=== PATIENT | female | born 1950 | race Caucasian/White ===

== ENCOUNTER → 2017-01-08 | Outpatient (CLI) | payer BC ==
[~2017-01-08] MED LIST: CZR50 PO; FURO-85 PO; NAPR1TAB9 PO; OMEG120013 PO; SIMV10TA2 PO; TRIA0.1C20 TOP
--- NOTE | 2017-01-08 13:34 | MAMMOGRAPHY REPORT ---
BILATERAL DIGITAL SCREENING MAMMOGRAM TOMOSYNTHESIS WITH CAD: 01/08/2017 CLINICAL HISTORY: Routine screening. Patient has no complaints. TECHNIQUE: Breast tomosynthesis in addition to standard 2D mammography was performed. Current study was also evaluated with a Computer Aided Detection (CAD) system. COMPARISON: Comparison is made to exams dated: 01/05/2016 mammogram, 12/31/2014 mammogram, 12/25/2013 mammogram, 05/13/2013 ultrasound, 12/23/2012 mammogram, and 12/18/2011 mammogram - [facility]. BREAST COMPOSITION: There are scattered areas of fibroglandular density in both breasts. FINDINGS: There is a focal area of architectural distortion with central linear calcification in the 3:00 anterior left breast, for which additional targeted ultrasound and possible additional mammogra phic views are recommended. There are possible grouped microcalcifications in the middle one third o f the left breast along the posterior nipple line on the CC view for which additional spot magnificat ion views are recommended. Another possible area of architectural distortion in the anterior right b reast, 3.7 cm distal to the nipple along the posterior nipple line, for which additional spot renea maury tomosynthesis views and possible ultrasound are recommended, although this could represent sung l overlapping tissue. No other suspicious mass, area of architectural distortion or suspicious calcifications are identifie d bilaterally. There is a stable benign popcorn calcification in the approximate 2:00 posterior righ t breast. IMPRESSION: ACR BI-RADS CATEGORY 0: INCOMPLETE EVALUATION: NEED ADDITIONAL IMAGING EVALUATION The focal area of architectural distortion in the 3:00 anterior left breast, left breast microcalcifi cations and possible additional area of distortion in the anterior right breast need additional imagi ng evaluation. The patient will be called to schedule an appointment. Approximately 10% of breast cancers are not detected with mammography. A negative mammographic report should not delay biopsy if a clinically suggestive mass is present. Karol Romano M.D. ay/:01/08/2017 08:11:13 Audio Visual Secretary: Sylvia Tang, [facility] letter sent: Addl Imaging 0 BI-RADS Code: ACR BI-RADS Category 0: Incomplete Evaluation: Need Additional Imaging Evaluation
== END | disposition home or self-care (01) ==
LOC: C.MAMM 07:06
PROVIDERS: ATTEND Internal Medicine
DX: Z12.31 Encounter for screening mammogram for malignant neoplasm of breast (principal); R92.8 Other abnormal and inconclusive findings on diagnostic imaging of breast

== ENCOUNTER → 2017-02-07 | Outpatient (CLI) | payer BC ==
--- NOTE | 2017-02-07 09:50 | Discharge Instructions ---
Discharge Instructions Procedure Procedure Date: Feb 07, 2017. Reason for visit: Left Distortion/Left Calcs. Discharge Discharge Date: Feb 07, 2017. Discharge Diagnosis: post left breast stereotactic guided biopsy x 2 Medications Restart Stopped Medication(s): May restart Aspirin tomorrow Instructions Activity Recommendations: Additional Limitations (see below) Return to School/Work: no limitations Recommended Home Diet: No Limitations Provider Instructions: ACTIVITY RECOMMENDATIONS: * No lifting, pushing, pulling or exercising the affected side for three days. RETURN TO SCHOOL/WORK: * You may return to work/school after the procedure, but do not perform any strenuous activities for 24 to 48 hours. MEDICATIONS: * Tylenol (two 325 mg) every four to six hours if needed for mild pain (if not allergic to Tylenol). DIET: * Resume previous diet. SPECIAL CARE INSTRUCTIONS: * Keep biopsy site dry for 24 hours. May shower after 24 hours, but do not soak (bathe) incision. * May remove Tegaderm (plastic patch) tomorrow AFTER showering. * Leave the steri-strips on for one week. Allow the steri-strips to fall off by themselves. If not off after one week, you may remove them. You may place a Bandaid crosswise over the strips, if desired. * Apply ice 10 minutes on and 10 minutes off as needed. * Wear a bra at bedtime to sleep more comfortably for 2-3 days. * Your referring physician should have the results after approximately 5 to 7 business days. * Call for unusual bleeding, fever, drainage, etc or if you have any questions call [phone] during normal business hours or after hours call Dr Romano, . FOLLOW UP VISIT: Follow-up with Referring Physician as scheduled. Allergies Coded Allergies: Meperidine (Verified Adverse Reaction, Unknown, "BLACKED OUT", 02/05/14) Maria Elena Novoa Recommendations: Call your doctor if: * Temperature above 101 degrees * Pain not relieved by pain medicine ordered * There is increased drainage or redness from any incision * You have any unanswered questions or concerns. Your Doctors Instructions noted above were prepared by provider Karol Romano. Patient Signature Section: Patient Instructions Signature Page Nancy Hung Patient (or Guardian) Signature/Date: I have read and understand the instructions given to me by my caregivers. Caregiver/RN/Doctor Signature/Date: The above-named patient and/or guardian has received patient instructions on this date. + Original Patient Signature Page (only) stays with chart. Please make copy for patient.
--- NOTE | 2017-02-07 15:19 | MAMMOGRAPHY REPORT ---
MULTIPLE STEREOTACTIC GUIDED BIOPSIES LEFT BREAST: 02/07/2017 CLINICAL HISTORY: Focal area of architectural distortion with linear calcification in the lower outer anterior left breast and also indeterminate grouping of punctate microcalcifications in the central left breast. Patient presents for stereotactic biopsy 2. Please refer to the report from left breast stereotactic guided biopsy performed at the same time for full detail. IMPRESSION: STEREOTACTIC GUIDED BIOPSY Please refer to the report from left breast stereotactic guided biopsy performed at the same time for full detail. Karol Romano M.D. ay/:02/07/2017 09:53:16 Carton Forming Machine Operator: Sylvia Tang, [facility]
--- NOTE | 2017-02-07 15:21 | MAMMOGRAPHY REPORT ---
UNILATERAL LEFT DIGITAL DIAGNOSTIC MAMMOGRAM TOMOSYNTHESIS: 02/07/2017 CLINICAL HISTORY: Indeterminate group microcalcifications and also a focal area of distortion with li near calcifications in the left breast. Patient presented for left breast stereotactic biopsy 2. Please refer to the report from left breast stereotactic biopsy performed at the same time for full d etail. IMPRESSION: POST PROCEDURE IMAGING FOR MARKER PLACEMENT Please refer to the report from left breast stereotactic biopsy performed at the same time for full d etail. Approximately 10% of breast cancers are not detected with mammography. A negative mammographic report should not delay biopsy if a clinically suggestive mass is present. Karol Romano M.D. ay/:02/07/2017 09:52:05 Client Account Manager: Sylvia Tang, [facility] BI-RADS Code: Post Procedure Imaging For Marker Placement
--- NOTE | 2017-02-08 15:29 | MAMMOGRAPHY REPORT ---
MULTIPLE STEREOTACTIC GUIDED BIOPSIES LEFT BREAST: 02/07/2017 CLINICAL HISTORY: 66-year-old woman presents for stereotactic guided biopsy 2 in the left breast. S he has a focal area of distortion in the lower outer anterior breast containing 2 linear calcificatio ns, and faint grouping of punctate microcalcifications in the central left breast. COMPARISON: Comparison is made to exams dated: 01/24/2017 ultrasound, 01/24/2017 mammogram, 01/08/2017 mammogram, 01/05/2016 mammogram, 12/31/2014 mammogram, and 12/23/2012 mammogram - [facility]. PATIENT CONSENT: After explaining the risks, benefits and alternatives of the procedure to the patien t, informed consent was obtained both verbally and in writing. Specific risks include: Bleeding, inf ection, puncture of adjacent structure, pain, nontarget biopsy, sampling error, metal allergy and med ication reaction. PROCEDURE DESCRIPTION: A time-out was performed and the left breast was confirmed as the site of biop sy. First the area of architectural distortion was identified and targeted for biopsy. The patient was placed prone on the stereotactic biopsy table and the breast was placed in lateralmedial renea maury. A director of psychology tomosynthesis view redemonstrated the area of distortion but the coordinates were very superficial therefore positioning was changed to CC from below. The distortion was again identified with additional tomosynthesis images and it is amenable to stereotactic biopsy. The skin was prepped with Betadine. 1% Lidocaine with and without epinipherine was administered as local anesthesia. A sm all skin incision was made. Through the incision, the needle was inserted to the depth determined by the computer. 8 samples were obtained using a [employer] 9-gauge vacuum-assisted biopsy device. The specimen radiograph demonstrated the 2 transportation services representative linear calcifications seen centrally within th e distortion, therefore a dumbbell shaped biopsy marker clip was placed at the site. There was mild bleeding after this procedure and therefore pressure was held for 15 minutes before moving on to the second biopsy. Then the faint grouped calcifications in the central left breast were identified and targeted for bio psy. A director of psychology image demonstrated the microcalcifications. Then positive and -15 stereotactic pair i mages were obtained. The calcifications were targeted utilizing the coordinates provided by the comp uter. The skin was reprepped with Betadine. Additional 1% buffered lidocaine with and without epine phrine was administered. A small skin incision was made in the breast and the needle was inserted to the depth determined by the computer. 10 core biopsy samples were obtained with a [employer] 9-gau Crowdwave vacuum assisted biopsy device. The specimen radiograph demonstrated numerous transportation services representative punct ate microcalcifications and a T-shaped metallic biopsy marker was placed at this site. Postprocedure CC and ML views of the left breast were obtained. There is a new dumbbell-shaped biops y marker clip in the lower outer anterior left breast with minimal 8mm hematoma at the site of the bi opsy in the area of architectural distortion. A T-shaped biopsy marker clip is seen in the central b reast with adjacent air pocket at the site of the biopsied calcifications. No significant hematoma i s seen at this site. IMPRESSION: STEREOTACTIC GUIDED BIOPSY Status post left breast stereotactic tomosynthesis guided biopsy of an area of architectural distorti on in the lower outer anterior left breast, and stereotactic guided biopsy of calcifications in the c entral left breast. Biopsy markers were placed at each site. The patient will receive notification of the biopsy results from referring physician. Karol Romano M.D. ay/:02/07/2017 16:40:48 Take Up Supervisor: Sylvia Tang, [facility]
== END | disposition home or self-care (01) ==
LOC: C.MAMM 08:11
PROVIDERS: ATTEND Obstetrics & Gynecology
DX: R92.0 Mammographic microcalcification found on diagnostic imaging of breast (principal); D24.2 Benign neoplasm of left breast